=== PATIENT | female | born 1945 | race Caucasian/White ===

== ENCOUNTER 2022-12-16 20:45 | Observation (INO) | payer MEDICARE, OTHER ==
[2022-12-16 23:47] LABS: #Basophils 0.1 10x3/uL (0.0-0.2); #Eosinphils 0.3 10x3/uL (0.0-0.5); #Monocytes 0.7 10x3/uL (0.0-1.1); %Basophils 0.8 % (0.0-2.0); %Eosinophils 4.1 % (0.0-6.0); %Lymphocytes 26.6 % (18.0-47.0); %Monocytes 7.8 % (0.0-10.0); %Neutrophils 60.5 % (40.0-75.0); Hematocrit 39.1 % (34.9-44.5); Hemoglobin 12.3 g/dL (12.0-15.5); Mean Corpuscular HGB CONC 31.5 g/dL (32.0-36.0); Mean Corpuscular Hemoglobin 27.5 pg (27.0-33.0); Mean Corpuscular Volume 87.5 fl (81.6-98.3); Mean Platelet Volume 9.6 fl (7.4-10.4); Platelet Count 185 10x3/uL (150-450); RBC Distribution Width 14.4 % (11.5-14.5); Red Blood Cell (RBC) Count 4.47 10x6/uL (3.90-5.03); White Blood Cell (WBC) Count 8.3 10x3/uL (3.5-10.5)
[2022-12-16 23:59] LABS: ALT (SGPT) 14 U/L (8-55); AST (SGOT) 23 U/L (5-34); Albumin 3.9 g/dL (3.4-4.8); Alkaline Phosphatase 109 U/L (40-110); Anion Gap 14 mmol/L (10-20); BUN (Urea Nitrogen) 14 mg/dL (9.8-20.1); Bilirubin, Total 0.5 mg/dL (0.2-1.2); Calc. Creatinine Clearance 0 mL/min (70-130); Calcium 9.4 mg/dL (7.8-10.44); Carbon Dioxide 27 mmol/L (23-31); Chloride 103 mmol/L (98-107); Estimated GFR 52; Globulin 3.1 g/dL (2.4-3.5); Glucose 109 mg/dL (83-110); Potassium 3.6 mmol/L (3.5-5.1); Sodium 140 mmol/L (136-145)
[2022-12-17] MEDS ORDERED: Cefepime 2 GM VIAL ONE (00:23)
[2022-12-17] MEDS ORDERED: HYDROcodone/Acetaminophen 5/325 mg Tablet PO PRN (00:40)
[2022-12-17] MEDS ORDERED: Guaifenesin DM 100-10/5 ML UDCUP PO PRN (00:40)
[2022-12-17] MEDS ORDERED: Ondansetron PF 4 MG/2 ML Vial IVP PRN (00:40)
[2022-12-17] MEDS ORDERED: Calcium Carbonate 500 MG ChewTAB PO PRN (00:40)
[2022-12-17] MEDS ORDERED: Senokot S 8.6-50 MG TAB PO PRN (00:40)
[2022-12-17] MEDS ORDERED: Acetaminophen 325 MG TAB PO PRN (00:40)
[2022-12-17] MEDS ORDERED: Vancomycin 1 GM VIAL ONE (00:41)
[2022-12-17] MEDS ORDERED: Vancomycin HCl 500 MG VIAL ONE (00:41)
[2022-12-17 02:05] VITALS: BMI 30.7
[2022-12-17] MEDS: cefTRIAXone\\ROCEPHIN 2 GM in Sodium Chloride 0.9% 100 ML IVPB SCH (03:40)
[2022-12-17] MEDS: Ibuprofen 200 MG TAB PO SCH ×2 (03:52→11:05)
[2022-12-17] MEDS: Levothyroxine Sodium 25 MCG TAB PO SCH (05:46)
[2022-12-17] MEDS ORDERED: Vancomycin 1 GM in Premix Bag 1 BAG IVPB SCH (11:00)
[2022-12-17] MEDS: Hydrochlorothiazide 25 MG TAB PO SCH (11:05)
[2022-12-17] MEDS: Losartan Potassium 50 MG TAB PO SCH (11:07)
[2022-12-17] MEDS: Escitalopram Oxalate 10 mg Tablet PO SCH (11:07)
[2022-12-17 12:15] LABS: #Basophils 0.1 10x3/uL (0.0-0.2); #Eosinphils 0.3 10x3/uL (0.0-0.5); #Monocytes 0.6 10x3/uL (0.0-1.1); #Neutrophils 4.4 10x3/uL (1.5-8.4); %Basophils 0.9 % (0.0-2.0); %Eosinophils 3.9 % (0.0-6.0); %Lymphocytes 23.2 % (18.0-47.0); %Monocytes 8.1 % (0.0-10.0); %Neutrophils 63.6 % (40.0-75.0); Hematocrit 39.3 % (34.9-44.5); Hemoglobin 12.7 g/dL (12.0-15.5); Mean Corpuscular HGB CONC 32.3 g/dL (32.0-36.0); Mean Corpuscular Volume 86.6 fl (81.6-98.3); Mean Platelet Volume 9.6 fl (7.4-10.4); Platelet Count 178 10x3/uL (150-450); RBC Distribution Width 14.1 % (11.5-14.5); Red Blood Cell (RBC) Count 4.54 10x6/uL (3.90-5.03); White Blood Cell (WBC) Count 6.9 10x3/uL (3.5-10.5)
[2022-12-17 12:34] LABS: Anion Gap 15 mmol/L (10-20); BUN (Urea Nitrogen) 12 mg/dL (9.8-20.1); Calc. Creatinine Clearance 67 mL/min (70-130); Calcium 9.2 mg/dL (7.8-10.44); Carbon Dioxide 24 mmol/L (23-31); Chloride 107 mmol/L (98-107); Estimated GFR 63; Glucose 88 mg/dL (83-110); Potassium 4.1 mmol/L (3.5-5.1); Sodium 142 mmol/L (136-145)
[2022-12-17] MEDS ORDERED: QUEtiapine 25 MG TAB PO SCH (21:00)
[2022-12-17] MEDS ORDERED: Simvastatin 10 MG TAB PO SCH (21:00)
[2022-12-18] MEDS ORDERED: Vancomycin HCl 1 GM in Sodium Chloride 0.9% 250 ML 250 ML IVPB SCH (01:00)
[2022-12-18 04:28] LABS: #Basophils 0.1 10x3/uL (0.0-0.2); #Eosinphils 0.3 10x3/uL (0.0-0.5); #Monocytes 0.7 10x3/uL (0.0-1.1); #Neutrophils 7.5 10x3/uL (1.5-8.4); %Basophils 0.7 % (0.0-2.0); %Eosinophils 2.9 % (0.0-6.0); %Lymphocytes 19.2 % (18.0-47.0); %Monocytes 6.6 % (0.0-10.0); %Neutrophils 70.4 % (40.0-75.0); Hematocrit 40.6 % (34.9-44.5); Mean Corpuscular Hemoglobin 27.6 pg (27.0-33.0); Mean Corpuscular Volume 86.2 fl (81.6-98.3); Mean Platelet Volume 9.5 fl (7.4-10.4); Platelet Count 203 10x3/uL (150-450); RBC Distribution Width 13.9 % (11.5-14.5); Red Blood Cell (RBC) Count 4.71 10x6/uL (3.90-5.03); White Blood Cell (WBC) Count 10.6 10x3/uL (3.5-10.5)
[2022-12-18 04:39] LABS: Anion Gap 13 mmol/L (10-20); BUN (Urea Nitrogen) 14 mg/dL (9.8-20.1); Calc. Creatinine Clearance 58 mL/min (70-130); Calcium 9.5 mg/dL (7.8-10.44); Carbon Dioxide 25 mmol/L (23-31); Chloride 104 mmol/L (98-107); Estimated GFR 53; Glucose 97 mg/dL (83-110); Potassium 3.9 mmol/L (3.5-5.1); Sodium 138 mmol/L (136-145)
[2022-12-18] MEDS: Levothyroxine Sodium 25 MCG TAB PO SCH (05:16)
[2022-12-18] MEDS: cefTRIAXone\\ROCEPHIN 2 GM in Sodium Chloride 0.9% 100 ML IVPB SCH (05:16)
[2022-12-18] MEDS: Escitalopram Oxalate 10 mg Tablet PO SCH (08:50)
[2022-12-18] MEDS: Hydrochlorothiazide 25 MG TAB PO SCH (08:51)
[2022-12-18] MEDS: Losartan Potassium 50 MG TAB PO SCH (08:51)
[2022-12-18 11:44] VITALS: BP 140/79; TEMP 98.7
== END 2022-12-18 13:07 | disposition home or self-care (01) ==
LOC: CSHERS 20:45 → INTOOBSV 12-17 00:15 → CSHTELE 12-17 00:15
PROVIDERS: ADMIT Student in an Organized Health Care Education/Training Program; ATTEND Internal Medicine
DX: L03.115 Cellulitis of right lower limb (principal); I10 Essential (primary) hypertension; E78.5 Hyperlipidemia, unspecified; E03.9 Hypothyroidism, unspecified; K21.9 Gastro-esophageal reflux disease without esophagitis; F03.90 Unspecified dementia, unspecified severity, without behavioral disturbance, psychotic disturbance, mood disturbance, and anxiety; N39.0 Urinary tract infection, site not specified; Z79.890 Hormone replacement therapy; Z79.899 Other long term (current) drug therapy
CPT/HCPCS: 80048 ×2; 80053; 84145; 85025 ×3; 85379; 86140; 93971; 96372; 96375; 96376; 97116; 97530; G0378 ×3; 36415; 96365; J0692; J0696; J1650; J3370; J3490; J7050

== ENCOUNTER 2023-02-23 09:56 | Emergency (ER) | payer MEDICARE | END 2023-02-23 11:11 | disposition home or self-care (01) | LOC: CSHERS 09:56 | DX: S09.90XA Unspecified injury of head, initial encounter (principal); M25.552 Pain in left hip; K21.9 Gastro-esophageal reflux disease without esophagitis; I10 Essential (primary) hypertension; E78.00 Pure hypercholesterolemia, unspecified; W19.XXXA Unspecified fall, initial encounter; Z87.891 Personal history of nicotine dependence | CPT/HCPCS: 70450; 71045; 72125; 72170 ==